=== PATIENT | female | born 1940 | race Caucasian/White ===

== ENCOUNTER 2018-03-30 08:57 | Emergency (ER) | payer MEDICARE ==
[~2018-03-30] VITALS: Ht 177.8 cm; Wt 70.0 kg
[~2018-03-30 08:57] MED LIST: CLONAZEPAM1 MG PO; PANTOPRAZOLE SO40 MG PO; ROBITUSSIN AC10 ML PO; SYNTHROID25 MCG PO; ZPAK PO
[2018-03-30 10:14] LABS: HEMATOCRIT 40.9 % (37.0-47.0); HEMOGLOBIN 13.7 g/dl (12.0-16.0); IMMATURE GRANULOCYTES 0.2 % (0.0-1.0); MEAN CELL VOLUME 93.4 fL CALC (80.0-100.0); MEAN CORPUSCULAR HGB 31.3 pG CALC (26.0-32.0); MEAN CORPUSCULAR HGB CONC 33.5 g/L CALC (32.0-36.0); NEUT# 4.39 thou/uL (2.00-7.15); RED BLOOD COUNT 4.38 mill/uL (4.20-5.60)
[2018-03-30 10:35] LABS: BILIRUBIN, TOTAL 0.5 mg/dL (0.0-1.4); CREATININE 1.3 mg/dL (0.5-1.0); POTASSIUM 4.5 mmol/l (3.5-5.1)
[2018-03-30] MEDS ORDERED: ESCITALOPRAM OX10 MG PO (10:35)
[2018-03-30] MEDS ORDERED: LEVOTHYROXINE75 MCG PO (10:35)
[2018-03-30] MEDS ORDERED: IRBESARTAN150 MG PO (10:36)
[2018-03-30] MEDS ORDERED: OMEPRAZOLE10 MG PO (10:36)
[2018-03-30] MEDS ORDERED: PRAMIPEXOLE DI1.5 M1 PO (10:37)
[2018-03-30 11:05] LABS: MYOGLOBIN 45 ng/mL (0 - 62)
[2018-03-30 11:43] VITALS: BP 151/86
== END 2018-03-30 11:43 | disposition home or self-care (01) ==
LOC: ED 08:57
PROVIDERS: Emergency Medicine
DX: I10 Essential (primary) hypertension (principal); E03.9 Hypothyroidism, unspecified; G25.81 Restless legs syndrome; F41.9 Anxiety disorder, unspecified; K21.9 Gastro-esophageal reflux disease without esophagitis

== ENCOUNTER 2020-04-28 13:45 | Observation (INO) | payer MEDICARE ==
[2020-04-28] VITALS (12 sets, daily range): BP systolic 74–105; BP diastolic 53–86
[~2020-04-28] VITALS: Ht 167.6 cm; Wt 89.6 kg
[~2020-04-28 13:45] MED LIST changes: +ESCITALOPRAM OX10 MG PO; +IRBESARTAN150 MG PO; +LEVOTHYROXINE75 MCG PO; +OMEPRAZOLE10 MG PO; +PRAMIPEXOLE DI1.5 M1 PO
--- NOTE | 2020-04-28 13:47 | NUR ---
PT TO ROOM VIA WC
--- NOTE | 2020-04-28 13:47 | NUR ---
PATIENT TO ROOM VIA WHEELCHAIR. MEND EXAM AND NIHSS NEGATIVE. HINTS EXAM NORMAL PATIENT STATES SUDDEN BLURRED VISION STARTING AT 1200 TODAY WITH SHARP STABBING HEADACHE OVER LEFT EYE. MD AT BEDSIDE AND STROKE ALERT CALLED BY
[2020-04-28] MEDS ORDERED: ELIQUIS5 MG PO (13:57)
[2020-04-28] MEDS ORDERED: NORVASC5 M1 PO (13:58)
[2020-04-28] MEDS ORDERED: GABAPENTIN300 M2 PO (13:58)
[2020-04-28] MEDS ORDERED: FUROSEMIDE20 MG PO (13:58)
[2020-04-28 14:11] LABS: HEMATOCRIT 41.7 % (37.0-47.0); IMMATURE GRANULOCYTES 0.3 % (0.0-5.0); MEAN CELL VOLUME 94.6 fL CALC (80.0-100.0); MEAN CORPUSCULAR HGB 29.5 pG CALC (26.0-32.0); MEAN CORPUSCULAR HGB CONC 31.2 g/dL CAL (32.0-36.0); NEUT# 4.27 thou/uL (2.00-7.15); RED BLOOD COUNT 4.41 mill/uL (4.20-5.60); RED CELL DISTRI WIDTH 13.5 % (11.5-15.5)
[2020-04-28 14:33] LABS: ALBUMIN 3.6 g/dL (3.2-5.0); ALKALINE PHOSPHATASE 94 u/l (38-126); ANION GAP 9 (6-22 (CALC)); BILIRUBIN, TOTAL 0.3 mg/dL (0.0-1.4); BUN 30 mg/dL (8-23); BUN/CREATININE RATIO 16 (12-20 (CALC)); CARBON DIOXIDE 30 mmol/l (22-30); CHLORIDE 101 mmol/l (95-108); CREATININE 1.9 mg/dL (0.5-1.0); GFR 26 ML/MIN (>=60 (CALC)); GFR FOR AFR.AMER. 31 ML/MIN (>=60 (CALC)); INTERNATIONAL NORMALIZED RATIO 1.1 RATIO (0.7-1.3); POTASSIUM 4.4 mmol/l (3.5-5.1); SGOT/AST 21 u/l (9-36); SODIUM 135 mmol/l (137-146); TOTAL PROTEIN 6.2 g/dL (6.3-8.2)
--- NOTE | 2020-04-28 14:33 | NUR ---
UPON ARRIVAL TO PT'S ROOM, BP NOTED TO BE 60'S OVER 40'S. PT PLACED IN SUPINE POSITION, MONITOR SHOWS A FIB RATE IN THE 80'S. NS BOLUS INFUSING IN # 20 RIGHT AC, SECOND IV ESTABLISHED IN LEFT AC. # 20. SECOND BOLUS OF 29265FM NS STARTED. PT DENIES CHEST PAIN / SHORTNESS OF BREATH AT THIS TIME. C/O INTERMITTENT DIZZINESS. FAMILY AT BEDSIDE, WILL CONTINUE TO MONITOR.
--- NOTE | 2020-04-28 14:45 | NUR ---
DR AYALA AT BEDSIDE TO CHECK ON PT, PT SUPINE IN BED, IVF INFUSING PER MD ORDER. BP TRENDING UP WITH NO COMPLAINTS VOICED BY PT AT THIS TIME. SEE VS CHARTING.
--- NOTE | 2020-04-28 15:00 | NUR ---
PT ALERT AND ORIENTED X 3, AIRWAY PATENT, RESP EVEN AND NON LABORED, SKIN P/W/D. PT SUPINE IN BED, TALKING WITH FAMILY MEMBER. WILL CONTINUE TO MONITOR.
--- NOTE | 2020-04-28 15:41 | NUR ---
SBAR PRINTED TO FLOOR
--- NOTE | 2020-04-28 16:29 | NUR ---
SAHARA PRETTY AT BEDSIDE TO EVALUATE PT.
--- NOTE | 2020-04-28 16:38 | NUR ---
REPORT CALLED TO [facility] ICU
--- NOTE | 2020-04-28 16:50 | NUR ---
PT TRANSPORTED VIA STRETCHER MONITOR IN PLACE TO ICU
--- NOTE | 2020-04-28 17:00 | NUR ---
PT ADMITTED TO ICU BED 6 FROM ED VIA STRETCHER DX:HYPOTENSION. PT TRANSFERRED FROM STRETCHER TO BED BY STAFF. PT AFIB ON TELEMETRY, HR 64. PT DENIES CP, SOB, OR DISTRESS AT THIS TIME. RESPIRATIONS EVEN/UNLABORED, SA02@100%RA, LS CLEAR THROUGHOUT. SKIN CDI. 20GRAC INFUSING NS@100ML/HR AND 20G TO LAC/SL, NO S/S OF INFILTRATION OR INFECTION. PT WT 197.7LBS ON BED SCALE. ABDOMEN SOFT NON-TENDER, PUREWICK IN PLACE UNTIL HYPOTENSION RESOLVED. PT ORIENTED TO UNIT, CALL LIGHT AND ROOM. CALL LIGHT IN REACH. WILL MONITOR.
--- NOTE | 2020-04-28 18:00 | NUR ---
PT RESTING IN BED, FAMILY DELIVERED PURSE TO UNIT. REMAINS HYPOTENSIVE. WILL MONITOR. CALL LIGHT IN REACH.
--- NOTE | 2020-04-28 19:01 | NUR ---
STATISTICIAN MATHEMATICAL BROUGHT PATIENT'S PURSE, I PROVIDED PURSE TO PATIENT. PT IN NO ACUTE DISTRESS, NO COMPLAINTS OR NEEDS AT THIS TIME. CALL LIGHT WITHIN REACH.
--- NOTE | 2020-04-28 19:40 | NUR ---
PATIENT IS AWAKE, ALERT AND ORIENTED X4. IS SPEAKING ON HER CELL PHONE WITH HER SISTER, PUTS HER SISTER ON HOLD WHILE I DO MY NURSE ASSESSMENT. PATIENT DENIES BLURRED VISION, OR HEADACHE AT THIS TIME. REPORTS SHE WOULD LIKE TO GO HOME. ON RA, NO SOB NOTED, O2 SAT WNL. BP LOW 100'S SYSTOLIC. AFIB ON TELE, HR 60'S. POC DISCUSSED FOR TONIGHT, PATIENT UNDERSTANDS AND AGREES. IV X2 INTACT, NS AT 100 ML/HR. PUREWICK INTACT, DRAINS YELLOW/CLOUDY URINE. REPORTS LAST BM 04/28. SELF REPOSITIONS. LEE HOSE INTACT. NO NEEDS OR COMPLAINTS AT THIS TIME. CALL LIGHT WITHIN REACH.
--- NOTE | 2020-04-28 22:02 | NUR ---
PATIENT ABLE TO TAKE HER BEDTIME MEDS WITHOUT ANY DIFFICULTY. PATIENT IN NO ACUTE DISTRESS, IS KNITTING A SWEATER. WATCHES TV. ALL VITALS WNL. REQUESTS ICED WATER AND CRACKERS. CALL LIGHT WITHIN REACH.
[2020-04-29] VITALS (12 sets, daily range): BP systolic 103–146; BP diastolic 59–94
--- NOTE | 2020-04-29 02:52 | NUR ---
PT RESTS WITH EYES CLOSED. NO ACUTE DISTRESS SHOWN, ALL VITALS WNL. CALL LIGHT WITHIN REACH.
--- NOTE | 2020-04-29 03:28 | NUR ---
NEW BAG OF NS IV FLUID INFUSING, URINE EMPTIED FROM CANISTER, 1000 ML, URINE IS YELLOW AND CLOUDY.
--- NOTE | 2020-04-29 04:51 | NUR ---
PATIENT IS AWAKE, REPOSITIONED BY HORTICULTURAL SPECIALTY GROWER FIELD. NO ACUTE DISTRESS SHOWN. NO NEEDS OR COMPLAINTS AT THIS TIME. CALL LIGHT WITHIN REACH.
--- NOTE | 2020-04-29 05:47 | NUR ---
patient able to swallow her am synthroid. pt wtches tv, is on her cellphne. no acute distress shown. call light within reach.
[2020-04-29 06:36] LABS: HEMATOCRIT 39.4 % (37.0-47.0); HEMOGLOBIN 12.1 g/dl (12.0-16.0); IMMATURE GRANULOCYTES 0.1 % (0.0-5.0); MEAN CELL VOLUME 96.6 fL CALC (80.0-100.0); MEAN CORPUSCULAR HGB 29.7 pG CALC (26.0-32.0); MEAN CORPUSCULAR HGB CONC 30.7 g/dL CAL (32.0-36.0); NEUT# 4.54 thou/uL (2.00-7.15); RED BLOOD COUNT 4.08 mill/uL (4.20-5.60); RED CELL DISTRI WIDTH 13.7 % (11.5-15.5)
[2020-04-29 06:51] LABS: ALBUMIN 3.2 g/dL (3.2-5.0); BILIRUBIN, TOTAL 0.4 mg/dL (0.0-1.4); CREATININE 1.3 mg/dL (0.5-1.0); POTASSIUM 4.7 mmol/l (3.5-5.1); TOTAL PROTEIN 5.5 g/dL (6.3-8.2)
--- NOTE | 2020-04-29 07:16 | NUR ---
REPORT RECEIVED FROM OTTO VILLALOBOS. PT RESTING IN BED SEMI FOWLERS WITH EYES CLOSED AND NO SIGNS OF DISTRESS. RESPIRATIONS EVEN AND UNLABORED ON ROOM AIR; SPO2 97%. STANDARD PRECAUTIONS. BP STABLE AT 121/80; IV FLUIDS INFUSING AT 100ML/HR; IV SITE APPEARS HEALTHY. PURWIK CATHETER IN PLACE TO CONTINUOUS SUCTION. SAFETY MEAUSRES IN PLACE. CALL LIGHT WITHIN REACH.
--- NOTE | 2020-04-29 07:51 | NUR ---
ALERT AND ORIENTED X 3; DENIES PAIN, BUT REPORTS INTERMITTENT HEADACHE BEHIND RIGHT EYE THAT COMES AND RESOLVES QUICKLY. DENIES NAUSEA AND SOB. URINE COLLECTED AND SENT TO LAB. PLAN OF CARE REVIEWED. PT ENCOURAGED TO VERBALIZE CONCERNS. STATES UNDERSTANDING. SAFETY MEASURES IN PLACE. CALL LIGHT WITHIN REACH.
[2020-04-29 08:32] LABS: URINE BILIRUBIN - DIPSTICK NEGATIVE (NEGATIVE); URINE BLOOD DIPSTICK NEGATIVE (NEGATIVE); URINE COLOR YELLOW; URINE GLUCOSE - DIPSTICK NEGATIVE (NEGATIVE); URINE KETONE NEGATIVE (NEGATIVE); URINE NITRITE - DIPSTICK NEGATIVE (Negative); URINE PROTEIN - DIPSTICK NEGATIVE (NEG-TRACE); URINE UROBILINOGEN - DIPSTICK 0.2 E.U./dL (0.2)
[2020-04-29 08:33] LABS: URINE LEUK ESTERASE MODERATE (NEGATIVE)
[2020-04-29 08:42] LABS: URINE BACTERIA MANY hpf
[2020-04-29 08:43] LABS: URINE SQUAMOUS EPITHELIAL CELL FEW EPI/hpf (0-FEW)
[2020-04-29] MEDS ORDERED: TOPROL XL25 M1 PO (08:46)
[2020-04-29] MEDS ORDERED: IRBESARTAN150 MG PO (08:46)
[2020-04-29] MEDS ORDERED: PRAMIPEXOLE DI0.5 MG PO (08:51)
[2020-04-29] MEDS ORDERED: PRAMIPEXOLE DIHY1 MG PO (09:22)
--- NOTE | 2020-04-29 10:41 | NUR ---
NO REQUESTS OR CONCERNS AT THIS TIME. PT RESTING AND WATCHING TV. VSS. CALL LIGHT WITHIN REACH.
--- NOTE | 2020-04-29 12:13 | NUR ---
PT OFF UNIT FOR MRI VIA WHEELCHAIR WITH OTTO CARMONA IN STABLE CONDITION. PRIOR TO TRANSPORT DR. JOSEPH AT BEDSIDE TO DISCUSS DISCHARGE PLANS AND BLOOD PRESSURE PARAMETERS. METOPROLOL ADMINISTERED AT THIS TIME.
--- NOTE | 2020-04-29 13:02 | NUR ---
BACK TO UNIT FROM MRI. PT AMBULATED TO BATHROOM TO VOID WITH STEADY GAIT. DENIES DIZZINESS. BP UPON RETURN 129/83 HR 89. REMAINS AFIB ON HIDE PASTER.
--- NOTE | 2020-04-29 14:41 | NUR ---
MRI RESULTS REPORTED TO DR. JOSEPH; OK TO GO HOME WITH NEGATIVE RESULTS. PT UPDATED; SITTING UP IN RECLINER. IV sites discontinued x 2, cath intact. No edema , no redness, voices no discomfort.
--- NOTE | 2020-04-29 15:26 | NUR ---
Discharge instructions given. Patient verbalizes understanding of same. Discharged in stable condition via Wheelchair to Home with family. All belongings sent with pt.
--- NOTE | 2020-05-01 10:14 | NUR ---
URINE CULTURE SHOWS E COLI MACARIO SENSITIVE. PT WAS HERE FOR DIZZINESS/HYPOTENSION/SYNCOPE. PT DIDN'T RECEIVE ABX IN HOUSE OR @ DISCHARGE. SPOKE WITH DR MCCORD, DECISION MADE TO CALL IN NEW RX FOR ABX. CALLED IN KEFLEX 500MG PO BID X7 DAYS TO [facility]. SPOKE WITH PT, REPORTED AMOXICILLIN ALLERGY RXN HIVES, BUT STATES SHE HAS TOLERATED KEFLEX B4, PT ALSO RECEIVED ROCEPHIN HERE B4. DISCUSSED URINE CX FINDINGS, SHE ALSO STATED SHE BELIEVES SHE'LL KEEP GETTING UTI BECAUSE OF HER URINARY INCONTINENCE. ADVISED PT TO FOLLOW UP WITH PCP REGARDING UI, REPORTS SHE HAS AN APPT THIS WEEK. NO FURTHER FOLLOW UP WARRANTED AT THIS TIME.
== END 2020-04-29 15:00 | disposition home or self-care (01) ==
LOC: ED 13:45 → ED-I 15:33 → ED 15:49 → ICU 15:50
PROVIDERS: Family Medicine; Nurse Practitioner; ADMIT Internal Medicine; ATTEND Internal Medicine
DX: R55 Syncope and collapse (principal); R42 Dizziness and giddiness; I95.9 Hypotension, unspecified; R82.71 Bacteriuria; E03.9 Hypothyroidism, unspecified; I11.0 Hypertensive heart disease with heart failure; I50.9 Heart failure, unspecified; I48.91 Unspecified atrial fibrillation; K21.9 Gastro-esophageal reflux disease without esophagitis; G62.9 Polyneuropathy, unspecified; N17.9 Acute kidney failure, unspecified; Z20.828 Contact with and (suspected) exposure to other viral communicable diseases

== ENCOUNTER 2020-05-17 23:50 | Emergency (ER) | payer MEDICARE ==
[~2020-05-17] VITALS: Ht 167.6 cm; Wt 86.0 kg
[~2020-05-17 23:50] MED LIST changes: +ELIQUIS5 MG PO; +FUROSEMIDE20 MG PO; +GABAPENTIN300 M2 PO; +NORVASC5 M1 PO; +PRAMIPEXOLE DI0.5 MG PO; +PRAMIPEXOLE DIHY1 MG PO; +TOPROL XL25 M1 PO
[2020-05-18 00:40] LABS: ALBUMIN 3.5 g/dL (3.2-5.0); ALKALINE PHOSPHATASE 82 u/l (38-126); ANION GAP 9 (6-22 (CALC)); BILIRUBIN, TOTAL 0.3 mg/dL (0.0-1.4); BUN 29 mg/dL (8-23); BUN/CREATININE RATIO 17 (12-20 (CALC)); CARBON DIOXIDE 29 mmol/l (22-30); CHLORIDE 103 mmol/l (95-108); CREATININE 1.7 mg/dL (0.5-1.0); GFR 29 ML/MIN (>=60 (CALC)); GFR FOR AFR.AMER. 35 ML/MIN (>=60 (CALC)); POTASSIUM 4.9 mmol/l (3.5-5.1); SGOT/AST 21 u/l (9-36); SODIUM 137 mmol/l (137-146); TOTAL PROTEIN 6.2 g/dL (6.3-8.2)
[2020-05-18 00:42] LABS: HEMATOCRIT 37.1 % (37.0-47.0); HEMOGLOBIN 11.6 g/dl (12.0-16.0); IMMATURE GRANULOCYTES 0.3 % (0.0-5.0); MEAN CELL VOLUME 95.1 fL CALC (80.0-100.0); MEAN CORPUSCULAR HGB 29.7 pG CALC (26.0-32.0); MEAN CORPUSCULAR HGB CONC 31.3 g/dL CAL (32.0-36.0); NEUT# 4.52 thou/uL (2.00-7.15); RED BLOOD COUNT 3.9 mill/uL (4.20-5.60); RED CELL DISTRI WIDTH 13.9 % (11.5-15.5)
[2020-05-18 00:52] LABS: MYOGLOBIN 53 ng/mL (0 - 62)
[2020-05-18 03:35] VITALS: BP 147/88
== END 2020-05-18 03:35 | disposition home or self-care (01) ==
LOC: ED 23:50
PROVIDERS: Emergency Medicine
DX: I95.9 Hypotension, unspecified (principal); I10 Essential (primary) hypertension; E03.9 Hypothyroidism, unspecified

== ENCOUNTER 2020-11-04 21:19 | Emergency (ER) | payer MEDICARE ==
[~2020-11-04] VITALS: Ht 167.6 cm; Wt 87.0 kg
[2020-11-05 02:00] VITALS: BP 164/78
[2020-11-05] MEDS ORDERED: ACIPHEX20 M1 PO (02:59)
== END 2020-11-05 02:00 | disposition home or self-care (01) ==
LOC: ED 21:19
DX: I10 Essential (primary) hypertension (principal); E03.9 Hypothyroidism, unspecified; F41.9 Anxiety disorder, unspecified; K21.9 Gastro-esophageal reflux disease without esophagitis; G62.9 Polyneuropathy, unspecified; I48.91 Unspecified atrial fibrillation; Z95.0 Presence of cardiac pacemaker

== ENCOUNTER 2021-08-31 09:03 | Emergency (ER) | payer MEDICARE ==
[~2021-08-31] VITALS: Ht 167.6 cm; Wt 87.2 kg
[~2021-08-31 09:03] MED LIST changes: +ACIPHEX20 M1 PO
[2021-08-31 10:48] VITALS: BP 151/88
[2021-08-31] MEDS ORDERED: MEDDOSEPAK PO (10:55)
[2021-08-31] MEDS ORDERED: DIPHENHYDRAM50 M2 PO (10:55)
[2021-08-31] MEDS ORDERED: PEPCID20 MG PO (10:56)
== END 2021-08-31 11:15 | disposition home or self-care (01) ==
LOC: ED 09:03
DX: T78.40XA Allergy, unspecified, initial encounter (principal); I10 Essential (primary) hypertension; E03.9 Hypothyroidism, unspecified; F41.9 Anxiety disorder, unspecified; K21.9 Gastro-esophageal reflux disease without esophagitis; G62.9 Polyneuropathy, unspecified; I48.91 Unspecified atrial fibrillation; J44.9 Chronic obstructive pulmonary disease, unspecified; X58.XXXA Exposure to other specified factors, initial encounter; Z95.0 Presence of cardiac pacemaker

== ENCOUNTER 2021-10-17 16:08 | Emergency (ER) | payer MEDICARE, MEDICAID ==
[~2021-10-17] VITALS: Ht 167.6 cm; Wt 87.0 kg
[~2021-10-17 16:08] MED LIST changes: +DIPHENHYDRAM50 M2 PO; +MEDDOSEPAK PO; +PEPCID20 MG PO
[2021-10-17 17:23] LABS: HEMATOCRIT 43.3 % (37.0-47.0); HEMOGLOBIN 13.8 g/dl (12.0-16.0); IMMATURE GRANULOCYTES 0.2 % (0.0-5.0); MEAN CELL VOLUME 101.9 fL CALC (80.0-100.0); MEAN CORPUSCULAR HGB 32.5 pG CALC (26.0-32.0); MEAN CORPUSCULAR HGB CONC 31.9 g/dL CAL (32.0-36.0); NEUT# 4.12 thou/uL (2.00-7.15); RED BLOOD COUNT 4.25 mill/uL (4.20-5.60); RED CELL DISTRI WIDTH 12.9 % (11.5-15.5)
[2021-10-17 17:43] LABS: ALBUMIN 3.3 g/dL (3.2-5.0); BILIRUBIN, TOTAL 0.4 mg/dL (0.0-1.4); CREATININE 1.7 mg/dL (0.5-1.0); POTASSIUM 4.6 mmol/l (3.5-5.1)
[2021-10-17] MEDS ORDERED: CIPROFLOXACN500 MG PO (19:22)
[2021-10-17] MEDS ORDERED: MEDDOSEPAK PO (19:22)
[2021-10-17 20:43] VITALS: BP 132/73
== END 2021-10-17 20:50 | disposition home or self-care (01) ==
LOC: ED 16:08
PROVIDERS: Emergency Medicine
DX: J44.1 Chronic obstructive pulmonary disease with (acute) exacerbation (principal); I10 Essential (primary) hypertension; E03.9 Hypothyroidism, unspecified; F41.9 Anxiety disorder, unspecified; I48.91 Unspecified atrial fibrillation; G62.9 Polyneuropathy, unspecified; Z95.0 Presence of cardiac pacemaker; Z77.110 Contact with and (suspected) exposure to air pollution; Z20.822 Contact with and (suspected) exposure to COVID-19
CPT/HCPCS: J1956

== ENCOUNTER 2022-05-18 12:22 | Observation (INO) | payer MEDICARE ==
[2022-05-18] VITALS (38 sets, daily range): BP systolic 84–139; BP diastolic 57–92
[~2022-05-18] VITALS: Ht 167.6 cm; Wt 75.0 kg
[~2022-05-18 12:22] MED LIST changes: +CIPROFLOXACN500 MG PO
[2022-05-18 13:36] LABS: URINE BILIRUBIN - DIPSTICK NEGATIVE (NEGATIVE); URINE BLOOD DIPSTICK NEGATIVE (NEGATIVE); URINE COLOR YELLOW; URINE GLUCOSE - DIPSTICK NEGATIVE (NEGATIVE); URINE KETONE NEGATIVE (NEGATIVE); URINE LEUK ESTERASE TRACE (NEGATIVE); URINE PROTEIN - DIPSTICK NEGATIVE (NEG-TRACE); URINE UROBILINOGEN - DIPSTICK 0.2 E.U./dL (0.2)
[2022-05-18 13:37] LABS: URINE NITRITE - DIPSTICK NEGATIVE (Negative)
[2022-05-18 14:15] LABS: HEMATOCRIT 43.2 % (37.0-47.0); HEMOGLOBIN 14.6 g/dl (12.0-16.0); IMMATURE GRANULOCYTES 0.1 % (0.0-5.0); MEAN CELL VOLUME 97.3 fL CALC (80.0-100.0); MEAN CORPUSCULAR HGB 32.9 pG CALC (26.0-32.0); MEAN CORPUSCULAR HGB CONC 33.8 g/dL CAL (32.0-36.0); NEUT# 5.13 thou/uL (2.00-7.15); RED BLOOD COUNT 4.44 mill/uL (4.20-5.60); RED CELL DISTRI WIDTH 12.7 % (11.5-15.5)
[2022-05-18 14:33] LABS: INTERNATIONAL NORMALIZED RATIO 1.2 RATIO (0.7-1.3); PROTHROMBIN TIME 12.1 SECONDS (9.0-12.5)
[2022-05-18 14:36] LABS: ALBUMIN 3.8 g/dL (3.2-5.0); BILIRUBIN, TOTAL 0.6 mg/dL (0.0-1.4); CREATININE 1.5 mg/dL (0.5-1.0); MAGNESIUM 2.1 mg/dL (1.6-2.3); POTASSIUM 4.2 mmol/l (3.5-5.1); TOTAL PROTEIN 6.4 g/dL (6.3-8.2)
[2022-05-18 18:04] LABS: HEMATOCRIT 42.6 % (37.0-47.0); HEMOGLOBIN 14.5 g/dl (12.0-16.0)
[2022-05-19] VITALS (17 sets, daily range): BP systolic 94–151; BP diastolic 58–130
== END 2022-05-18 22:35 | disposition left against medical advice (07) ==
LOC: ED 12:22 → MS2 17:11 → ED 21:35 → MS2 22:35
PROVIDERS: Internal Medicine; ADMIT Internal Medicine; ATTEND Internal Medicine
DX: K92.1 Melena (principal); I10 Essential (primary) hypertension; E03.9 Hypothyroidism, unspecified; F41.9 Anxiety disorder, unspecified; K21.9 Gastro-esophageal reflux disease without esophagitis; I48.91 Unspecified atrial fibrillation; G62.9 Polyneuropathy, unspecified; Z86.16 Personal history of COVID-19; Z95.0 Presence of cardiac pacemaker; Z20.822 Contact with and (suspected) exposure to COVID-19
CPT/HCPCS: S0164

== ENCOUNTER 2022-05-23 20:46 | Observation (INO) | payer MEDICARE ==
[~2022-05-23] VITALS: Ht 167.6 cm; Wt 85.0 kg
[2022-05-23 21:56] VITALS: BP 98/61
[2022-05-23 22:59] LABS: HEMATOCRIT 41.8 % (37.0-47.0); HEMOGLOBIN 14.2 g/dl (12.0-16.0); IMMATURE GRANULOCYTES 0.1 % (0.0-5.0); MEAN CELL VOLUME 95.7 fL CALC (80.0-100.0); MEAN CORPUSCULAR HGB 32.5 pG CALC (26.0-32.0); NEUT# 5.52 thou/uL (2.00-7.15); RED BLOOD COUNT 4.37 mill/uL (4.20-5.60); RED CELL DISTRI WIDTH 12.6 % (11.5-15.5)
[2022-05-23 23:03] LABS: ALBUMIN 3.8 g/dL (3.2-5.0); CREATININE 1.7 mg/dL (0.5-1.0); POTASSIUM 3.8 mmol/l (3.5-5.1); TOTAL PROTEIN 6.4 g/dL (6.3-8.2)
[2022-05-23 23:04] LABS: BILIRUBIN, TOTAL 0.3 mg/dL (0.0-1.4)
[2022-05-23 23:06] LABS: ACT PARTIAL THROMBO TIME 29.5 SECONDS (20.0-32.5); INTERNATIONAL NORMALIZED RATIO 1.2 RATIO (0.7-1.3); PROTHROMBIN TIME 11.9 SECONDS (9.0-12.5)
--- NOTE | 2022-05-24 00:58 | NUR ---
REPORT CALLED JANIE, MED-SURG.
--- NOTE | 2022-05-24 01:55 | NUR ---
PATIENT ADMITTED TO ROOM 265 VIA STRETCHER. PATIENT AMBULATED SELF TO BED. ALERT AND ORIENTED. ORIENTED PATIENT TO ROOM, CALL LIGHT AND SURROUNDINGS.ABLE TO MAKE NEEDS KNOWN. ASSESSMENT COMPLETE. DENIES ANY ABDOMINAL PAIN OR GENERAL PAIN. NO SIGNS OF DISTRESS. NO SKIN ISSUES. PATIENT VOICED SHE HAS EPISODES OF UNCONTROLLED INCONTINENCE. VOICES SHE WEARS BRIEFS AND PADS. FRESH ICE WATER AT BED SIDE. BED REMAINS IN LOW POSITION. CALL LIGHT IN REACH.
--- NOTE | 2022-05-24 02:00 | NUR ---
TO FLOOR VIA W/C. NAD.
[2022-05-24 02:04] VITALS: BP 145/97
--- NOTE | 2022-05-24 03:38 | NUR ---
PATIENT SITTING UP IN BED. DENIES ANY PAIN OR DISCOMFORT. REMAINS ABLE TO MAKE NEEDS KNOWN. CALL LIGHT REMAINS IN REACH.
[2022-05-24 04:06] VITALS: BP 125/79
[2022-05-24 05:19] LABS: HEMATOCRIT 43.3 % (37.0-47.0); HEMOGLOBIN 14.6 g/dl (12.0-16.0); IMMATURE GRANULOCYTES 0.4 % (0.0-5.0); MEAN CELL VOLUME 96.9 fL CALC (80.0-100.0); MEAN CORPUSCULAR HGB 32.7 pG CALC (26.0-32.0); MEAN CORPUSCULAR HGB CONC 33.7 g/dL CAL (32.0-36.0); NEUT# 4.27 thou/uL (2.00-7.15); RED BLOOD COUNT 4.47 mill/uL (4.20-5.60); RED CELL DISTRI WIDTH 12.6 % (11.5-15.5)
--- NOTE | 2022-05-24 07:10 | NUR ---
RECEIVED REPORT FROM OTTO MADRIGAL.
[2022-05-24 07:40] VITALS: BP 116/76
--- NOTE | 2022-05-24 08:10 | NUR ---
PT ASSISTED TO BATHROOM: A&O X3. EVEN AND UNLABORED RESPIRATIONS: CLEAR LUNG SOUNDS UPON AUSCULTATION. IV SITE HEALTHY AND PATENT. ACTIVE BOWEL SOUNDS X4 QUADRANTS. SAFETY PRECAUTIONS IN PLACE WITH CALL LIGHT IN REACH.
[2022-05-24 09:59] VITALS: BP 127/74
--- NOTE | 2022-05-24 12:30 | NUR ---
PT SITTING ON BED WATCHING TV. NO DISTRESS OR PAIN NOTED. PT ASKED [employer] OPERATIONS MANAGER ABOUT TIME OF DC: HY[employer] OPERATIONS MANAGER INFORMED PT IS WORKING ON DC PAPERWORK AND THAT SHE WILL BE NOTIFIED WHEN DC ORDER IS PLACE, PT AGREED AND SHOWED UNDERSTANDING. SAFETY PRECAUTIONS IN PLACE WITH CALL LIGHT IN REACH.
[2022-05-24 15:26] VITALS: BP 137/84
--- NOTE | 2022-05-24 16:00 | NUR ---
PT EDUCATED ON DC INSTRUCTIONS; PT SHOWED UNDERSTANDING. IV REMOVED: # 20G RT AC, CATHETER INTACT UPON REMOVAL, PT TOLERATED WELL.
--- NOTE | 2022-05-24 16:08 | NUR ---
PT LEFT @ 1608. Discharge instructions given. Patient verbalizes understanding of same. Discharged in stable condition via Wheelchair to Home with staff. All belongings sent with pt.
== END 2022-05-24 16:18 | disposition home or self-care (01) ==
LOC: ED 20:46 → ED-I 23:23 → ED 23:39 → MS2 23:40
PROVIDERS: Family Medicine; ADMIT Internal Medicine; ATTEND Internal Medicine
DX: K92.1 Melena (principal); K59.09 Other constipation; I10 Essential (primary) hypertension; J44.9 Chronic obstructive pulmonary disease, unspecified; I48.91 Unspecified atrial fibrillation; E03.9 Hypothyroidism, unspecified; F41.9 Anxiety disorder, unspecified; K21.9 Gastro-esophageal reflux disease without esophagitis; G25.81 Restless legs syndrome; G62.9 Polyneuropathy, unspecified; Z95.0 Presence of cardiac pacemaker; Z79.01 Long term (current) use of anticoagulants; Z20.822 Contact with and (suspected) exposure to COVID-19
CPT/HCPCS: S0164

== ENCOUNTER 2023-09-18 06:19 | Emergency (ER) | payer MEDICARE ==
[~2023-09-18] VITALS: Ht 167.6 cm; Wt 84.0 kg
[2023-09-18] VITALS (8 sets, daily range): BP systolic 125–176; BP diastolic 84–113
[2023-09-18] MEDS ORDERED: FUROSEMIDE20 MG PO (06:42)
[2023-09-18 07:35] LABS: BASO% 0.5 % (0-3); HEMATOCRIT 43.6 % (37.0-47.0); HEMOGLOBIN 14.1 g/dl (12.0-16.0); IMMATURE GRANULOCYTES 0.2 % (0.0-5.0); LYMPH% 20.8 % (15-41); MEAN CELL VOLUME 98.9 fL CALC (80.0-100.0); MEAN CORPUSCULAR HGB CONC 32.3 g/dL CAL (32.0-36.0); MONO% 8.6 % (2-13); NEUT# 4.46 thou/uL (2.00-7.15); NEUT% 66.9 % (42-76); RED BLOOD COUNT 4.41 mill/uL (4.20-5.60)
[2023-09-18 08:06] LABS: ACT PARTIAL THROMBO TIME 28.7 SECONDS (20.0-32.5); INTERNATIONAL NORMALIZED RATIO 1.2 RATIO (0.7-1.3); PROTHROMBIN TIME 11.4 SECONDS (9.0-12.5)
[2023-09-18 08:07] LABS: ALBUMIN 3.7 g/dL (3.2-5.0); CREATININE 1.4 mg/dL (0.5-1.0); TOTAL PROTEIN 6.1 g/dL (6.3-8.2)
[2023-09-18 08:11] LABS: BILIRUBIN, TOTAL 0.6 mg/dL (0.02-1.3); POTASSIUM 4.6 mmol/l (3.5-5.1)
== END 2023-09-18 08:52 | disposition home or self-care (01) ==
LOC: ED 06:19
PROVIDERS: Family Medicine
DX: M79.662 Pain in left lower leg (principal); I10 Essential (primary) hypertension; E03.9 Hypothyroidism, unspecified; G25.81 Restless legs syndrome; F41.9 Anxiety disorder, unspecified; K21.9 Gastro-esophageal reflux disease without esophagitis; G62.9 Polyneuropathy, unspecified; I48.91 Unspecified atrial fibrillation; J44.9 Chronic obstructive pulmonary disease, unspecified; Z95.0 Presence of cardiac pacemaker

== ENCOUNTER → 2024-03-17 | Day surgery (SDC) | payer MEDICARE ==
[~2024-03-17] VITALS: Ht 167.6 cm; Wt 85.3 kg
[~2024-03-17] MED LIST changes: +ALBUTEROL108 MCG/AC; +ALBUTEROL2 MG/5 ML IN; +BREO ELLIPTA1 INH; +BREO ELLIPTA1 INH IN; +FAMOTIDINE 10MG/ML 2ML SDV IV ONE; +LABETALOL HCL 100 MG/20 ML VIAL IV ONE; +LACTATED RINGER'S 1,000 ML IV ONE; +LASIX 40 MG TAB40 MG PO; +LATANOPROST0.005 % OP; +LEXAPRO10 MG PO; +LIDOCAINE HCL 2% 2ML SDV IV ONE; +PROPOFOL 200 MG/20 ML VIAL IV ONE; +STERILE WATER FOR IRRIGATION 1,000 ML BTL IR ONE; +TRAVOPROST0.0041; +XALATAN 0.005%2.5 ML OU
[2024-03-17 10:06] VITALS: BP 136/86
== END | disposition home or self-care (01) ==
LOC: ENDO 07:49 → ORM 08:00 → ENDO 09:00
PROVIDERS: ATTEND Surgery
PROC: 0DBN8ZX Excision of Sigmoid Colon, Via Natural or Artificial Opening Endoscopic, Diagnostic (ICD-10-PCS; principal; 2024-03-17)
DX: K57.31 Diverticulosis of large intestine without perforation or abscess with bleeding (principal); D12.5 Benign neoplasm of sigmoid colon; K64.8 Other hemorrhoids; I11.0 Hypertensive heart disease with heart failure; I50.9 Heart failure, unspecified; I48.91 Unspecified atrial fibrillation; J44.9 Chronic obstructive pulmonary disease, unspecified